=== PATIENT | female | born 1930 | race Caucasian/White ===

== ENCOUNTER → 2016-10-18 | Outpatient (CLI) | payer OTHER, BC ==
[~2016-10-18] MED LIST: ALEN70TA4 PO; ASPI81TA28 PO; HYG/25 PO; LEVO25TA5 PO; LISI-461 PO; MAGN400T24 PO; PANT40TA PO; POTA20TA13 PO; RANI150T3 PO; SIMV40TA2 PO
[2016-10-18 09:30] LABS: BASO % 0.9 %; BASO ABS # 0.07 K/uL (0-0.2); COMPLETE YES; EOS % 3.6 %; LYMPH % 10.7 %; LYMPH ABS # 0.87 K/uL (1.2-3.4); MEAN CELL VOLUME 87.6 fL (80-100); MEAN CORPUSCULAR HEMOGLOBIN 29.1 pg (25-34); MEAN CORPUSCULAR HGB CONC 33.2 g/dl (32-36); MEAN PLATELET VOLUME 9.4 fL (7.4-10.4); NEUT % 73.8 %; PLATELET COUNT 204 K/uL (130-400); RED BLOOD COUNT 4.68 M/uL (4.2-5.4); WHITE BLOOD COUNT 8.14 K/uL (4.8-10.8)
[2016-10-18 09:50] LABS: ESTIMATED AVERAGE GLUCOSE 108 mg/dl; HA1C FLAG Normal (Normal)
[2016-10-18 10:08] LABS: ALT/SGPT 28 U/L (12-78); AST/SGOT 18 U/L (15-37); BLOOD UREA NITROGEN 25 mg/dl (7-18); BUN/CREATININE RATIO 25.4 (10-20); CALCIUM 9.1 mg/dl (8.5-10.1); CARBON DIOXIDE 30 mmol/L (21-32); CHLORIDE 103 mmol/L (98-107); CHOLESTEROL 189 mg/dl (0-200); CREATININE 0.99 mg/dl (0.60-1.20); GLUCOSE 90 mg/dl (70-99); POTASSIUM 4.1 mmol/L (3.5-5.1); SODIUM 141 mmol/L (136-145)
[2016-10-18 10:18] LABS: CHOLESTEROL/HDL RATIO 4.1; HDL CHOLESTEROL 46 mg/dl; LDL CHOLESTEROL CALCULATED 109 mg/dl; TRIGLYCERIDES 168 mg/dl (0-150); VERY LOW DENSITY LIPOPROT CALC 34 mg/dl
== END | disposition home or self-care (01) ==
LOC: C.LAB1850 08:33
PROVIDERS: ATTEND Internal Medicine
DX: E78.00 Pure hypercholesterolemia, unspecified (principal); I10 Essential (primary) hypertension; R73.9 Hyperglycemia, unspecified

== ENCOUNTER → 2017-03-11 | Outpatient (CLI) | payer OTHER, BC ==
[2017-03-11 09:41] LABS: BASO % 0.8 %; BASO ABS # 0.06 K/uL (0-0.2); COMPLETE YES; EOS % 3.2 %; HEMATOCRIT 41.1 % (37-47); IG% 1.1 %; MEAN CELL VOLUME 86.2 fL (80-100); MEAN CORPUSCULAR HEMOGLOBIN 28.7 pg (25-34); MEAN CORPUSCULAR HGB CONC 33.3 g/dl (32-36); MONO % 9.2 %; NEUT % 71.7 %; PLATELET COUNT 216 K/uL (130-400); RED BLOOD COUNT 4.77 M/uL (4.2-5.4); WHITE BLOOD COUNT 7.84 K/uL (4.8-10.8)
[2017-03-11 09:44] LABS: URINE APPEARANCE CLEAR (CLEAR); URINE BILIRUBIN NEG (NEG); URINE COLOR YELLOW; URINE EPITHELIAL CELL AUTO >30 /lpf (0-5); URINE NITRITE NEG (NEG); URINE SPECIFIC GRAVITY 1.021 (1.000-1.030); UROBILINOGEN NEG (NEG)
[2017-03-11 09:46] LABS: MANUAL MICROSCOPIC REQUIRED? NO; REVIEW REQ? NO
[2017-03-11 09:54] LABS: ESTIMATED AVERAGE GLUCOSE 117 mg/dl; HA1C FLAG Normal (Normal)
[2017-03-11 10:04] LABS: ALT/SGPT 36 U/L (12-78); AST/SGOT 22 U/L (15-37); BLOOD UREA NITROGEN 29 mg/dl (7-18); BUN/CREATININE RATIO 22.6 (10-20); CARBON DIOXIDE 26 mmol/L (21-32); CHLORIDE 106 mmol/L (98-107); CHOLESTEROL 185 mg/dl (0-200); GLUCOSE 99 mg/dl (70-99); SODIUM 141 mmol/L (136-145); TRIGLYCERIDES 181 mg/dl (0-150); VERY LOW DENSITY LIPOPROT CALC 36 mg/dl
[2017-03-11 10:07] LABS: CALCIUM 8.9 mg/dl (8.5-10.1)
[2017-03-11 10:15] LABS: CHOLESTEROL/HDL RATIO 4.7; HDL CHOLESTEROL 39 mg/dl; LDL CHOLESTEROL CALCULATED 110 mg/dl
== END | disposition home or self-care (01) ==
LOC: C.LAB1850 07:51
PROVIDERS: ATTEND Internal Medicine
DX: Z00.00 Encounter for general adult medical examination without abnormal findings (principal); R53.83 Other fatigue; D50.9 Iron deficiency anemia, unspecified; R73.9 Hyperglycemia, unspecified; I10 Essential (primary) hypertension; E78.00 Pure hypercholesterolemia, unspecified; M79.1 Myalgia; M62.81 Muscle weakness (generalized); E03.9 Hypothyroidism, unspecified

== ENCOUNTER → 2017-08-15 | Outpatient (CLI) | payer OTHER, BC ==
--- NOTE | 2017-08-16 07:46 | MAMMOGRAPHY REPORT ---
BILATERAL DIGITAL SCREENING MAMMOGRAM WITH CAD: 08/15/2017 CLINICAL HISTORY: Routine screening. Patient has no complaints. TECHNIQUE: Bilateral CC, MLO and repeat right MLO views were obtained. Current study was also evalua juan f with a Computer Aided Detection (CAD) system. COMPARISON: Comparison is made to exams dated: 08/11/2016 mammogram, 07/28/2015 mammogram, 07/26/2014 mammogram, 07/25/2013 mammogram, 07/24/2012 mammogram, and 07/19/2011 mammogram - [facility]. BREAST COMPOSITION: There are scattered areas of fibroglandular density in both breasts. FINDINGS: There are a few scattered stable benign-appearing microcalcifications. A linear scar fred er overlies the inferior left breast. No suspicious mass, architectural distortion or cluster of david picious microcalcifications is seen. IMPRESSION: ACR BI-RADS CATEGORY 1: NEGATIVE There is no mammographic evidence of malignancy. A 1 year screening mammogram is recommended. The pa tient will receive written notification of the results. Approximately 10% of breast cancers are not detected with mammography. A negative mammographic report should not delay biopsy if a clinically suggestive mass is present. Lorenza Sahni M.D. ay/:08/15/2017 16:08:09 Enterprise Sales Executive: Chantal AMBRIZR, M, [facility] letter sent: Normal 1/2 BI-RADS Code: ACR BI-RADS Category 1: Negative
== END | disposition home or self-care (01) ==
LOC: C.MAMM 10:16
PROVIDERS: ATTEND Obstetrics & Gynecology
DX: Z12.31 Encounter for screening mammogram for malignant neoplasm of breast (principal)

== ENCOUNTER → 2017-11-18 | Outpatient (CLI) | payer OTHER, BC ==
[2017-11-18 09:36] LABS: BASO % 0.6 %; BASO ABS # 0.05 K/uL (0-0.2); EOS % 2.2 %; EOS ABS # 0.17 K/uL (0-0.5); HEMATOCRIT 39.7 % (37-47); HEMOGLOBIN 13.2 g/dL (12.0-16.0); IG# 0.03 K/uL (0.00-0.02); LYMPH % 10.3 %; LYMPH ABS # 0.81 K/uL (1.2-3.4); MEAN CELL VOLUME 86.1 fL (80-100); MEAN CORPUSCULAR HEMOGLOBIN 28.6 pg (25-34); MEAN CORPUSCULAR HGB CONC 33.2 g/dl (32-36); MONO % 10.9 %; MONO ABS # 0.85 K/uL (0.11-0.59); NEUT % 75.6 %; NEUT ABS # 5.92 K/uL (1.4-6.5); PLATELET COUNT 254 K/uL (130-400); RED CELL DISTRIBUTION WIDTH CV 14.6 % (11.5-14.5); RED CELL DISTRIBUTION WIDTH SD 45.8 fL (36.4-46.3); WHITE BLOOD COUNT 7.83 K/uL (4.8-10.8)
[2017-11-18 09:51] LABS: ALT/SGPT 39 U/L (12-78); AST/SGOT 32 U/L (15-37); BLOOD UREA NITROGEN 27 mg/dl (7-18); CARBON DIOXIDE 27 mmol/L (21-32); CREATININE 1.15 mg/dl (0.60-1.20); GLUCOSE 108 mg/dl (70-99); POTASSIUM 3.7 mmol/L (3.5-5.1); SODIUM 137 mmol/L (136-145)
[2017-11-18 09:55] LABS: HEMOGLOBIN A1C 5.6 % (4.5-5.6)
[2017-11-18 09:56] LABS: CHOLESTEROL 151 mg/dl (0-200); LDL CHOLESTEROL CALCULATED 82 mg/dl
== END | disposition home or self-care (01) ==
LOC: C.LAB1850 07:56
PROVIDERS: ATTEND Internal Medicine
DX: E78.00 Pure hypercholesterolemia, unspecified (principal)

== ENCOUNTER → 2018-05-03 | Outpatient (CLI) | payer OTHER, BC | END | disposition home or self-care (01) | LOC: C.LAB1850 09:47 | PROVIDERS: ATTEND Internal Medicine | DX: Z00.00 Encounter for general adult medical examination without abnormal findings (principal) ==

== ENCOUNTER → 2018-05-22 | Outpatient (CLI) | payer OTHER, BC ==
[2018-05-22 10:10] LABS: BASO % 0.9 %; BASO ABS # 0.07 K/uL (0-0.2); EOS % 3.8 %; HEMATOCRIT 38.7 % (37-47); HEMOGLOBIN 12.8 g/dL (12.0-16.0); IG# 0.09 K/uL (0.00-0.02); LYMPH % 11.3 %; LYMPH ABS # 0.88 K/uL (1.2-3.4); MEAN CORPUSCULAR HEMOGLOBIN 28.4 pg (25-34); MEAN CORPUSCULAR HGB CONC 33.1 g/dl (32-36); MEAN PLATELET VOLUME 9.5 fL (7.4-10.4); NEUT % 73.8 %; NEUT ABS # 5.76 K/uL (1.4-6.5); PLATELET COUNT 205 K/uL (130-400); RED CELL DISTRIBUTION WIDTH CV 15.2 % (11.5-14.5); RED CELL DISTRIBUTION WIDTH SD 48.5 fL (36.4-46.3)
[2018-05-22 10:33] LABS: HEMOGLOBIN A1C 5.6 % (4.5-5.6)
[2018-05-22 10:34] LABS: ALT/SGPT 28 U/L (12-78); AST/SGOT 21 U/L (15-37); BLOOD UREA NITROGEN 24 mg/dl (7-18); CALCIUM 8.6 mg/dl (8.5-10.1); CARBON DIOXIDE 26 mmol/L (21-32); CHOLESTEROL 157 mg/dl (0-200); CREATININE 1.09 mg/dl (0.60-1.20); GLUCOSE 96 mg/dl (70-99); LDL CHOLESTEROL CALCULATED 82 mg/dl; POTASSIUM 3.6 mmol/L (3.5-5.1); SODIUM 139 mmol/L (136-145)
== END | disposition home or self-care (01) ==
LOC: C.LAB1850 08:11
PROVIDERS: ATTEND Internal Medicine
DX: E78.00 Pure hypercholesterolemia, unspecified (principal)

== ENCOUNTER 2020-07-29 19:11 | Inpatient (IN) ==
[2020-07-29] MEDS ORDERED: dilTIAZem HCl 5 MG/ML 5 ML VIAL IV STA (19:22)
[2020-07-29] MEDS ORDERED: STAT IV Infusion **Titration per Protocol STA (19:22)
--- NOTE | 2020-07-29 19:34 | Emergency Department Note ---
History of Present Illness General Chief Complaint: Shortness of Breath/Dyspnea Source: patient Mode of arrival: ambulatory Limitations: no limitations History of Present Illness Provider Complaint: shortness of breath HPI Narrative: This is an 89-year-old female who presents to the ED with a chief complaint of exertional dyspnea for months. Today the patient went to a movie and she states that she had exertional dyspnea when she was walking home. She states that she took a nap and when she awoke she felt tightness in her chest, lightheaded and shaky. She decided to come to the hospital for evaluation. She denies any history of A. fib. EMS found the patient to have A. fib with RVR with heart rate of 140. She was transported here for further evaluation. She denies any nausea or vomiting. No fevers, respiratory complaints with regards to infection or other concerning symptoms. Related Data Home oxygen amount: 3 liters Home Medications Home Medications Medication Instructions Recorded Confirmed Type aspirin 81 mg tablet 81 mg PO DAILY tab 05/18/19 07/01/20 History ferrous gluconate 240 mg (27 mg 240 mg PO DAILY tab 05/18/19 07/01/20 History iron) tablet fluticasone propionate 50 2 sprays INTNAS BID #19.8 gm 10/29/19 07/01/20 Rx mcg/actuation nasal spray,suspension hydrochlorothiazide 12.5 mg capsule 12.5 mg PO DAILY #90 cap 05/06/20 07/01/20 Rx levothyroxine 25 mcg tablet 25 mcg PO DAILY #90 tab 05/06/20 07/01/20 Rx lisinopril 40 mg tablet 40 mg PO DAILY #90 tab 05/06/20 07/01/20 Rx mirabegron 25 mg tablet,extended 25 mg PO DAILY #90 tab 05/06/20 07/01/20 Rx release 24 hr pantoprazole 40 mg tablet,delayed 40 mg PO BID #180 tab 05/06/20 07/01/20 Rx release simvastatin 80 mg tablet 80 mg PO DAILY #90 tab 05/06/20 07/01/20 Rx cetirizine 10 mg tablet 5 mg PO DAILY tab 07/01/20 07/01/20 History fluticasone propionate 50 2 spray INTRANASAL DAILY #15.8 g 07/01/20 07/01/20 Rx mcg/actuation nasal spray,suspension mupirocin 2 % topical ointment 1 applic TOPICAL BID #15 g 07/01/20 07/01/20 Rx Allergies Allergy/AdvReac Type Severity Reaction Status Date / Time aspirin Allergy Unknown UNKNOWN Unverified 07/01/20 09:11 caffeine Allergy Unknown TACHYCARDIA Verified 07/01/20 09:11 - BODY FELT OUT OF "WHACK" epinephrine Allergy Unknown UNKNOWN Unverified 07/01/20 09:11 house dust Allergy Unknown Verified 07/01/20 09:11 Iodinated Contrast Media Allergy Unknown UNKNOWN Unverified 07/01/20 09:11 iodine Allergy Unknown TACHYCARDIA Verified 07/01/20 09:11 - BODY FELT OUT OF "WHACK" Penicillins Allergy Unknown UNKNOWN Verified 07/01/20 09:11 sulfamethoxazole Allergy Unknown Verified 07/01/20 09:11 [From Bactrim] trimethoprim [From Bactrim] Allergy Unknown Verified 07/01/20 09:11 mold Allergy Verified 07/01/20 09:11 nitrofurantoin Allergy Verified 07/01/20 09:11 [From Macrobid] Past Med/Surg History Medical History Allergic rhinitis Allergy to NSAIDs Breast mass Chronic sinusitis Dizziness Fatigue Frequent urinary incontinence Gastroesophageal reflux disease Hypercholesterolemia Hyperglycemia Hypothyroidism Iron deficiency anemia Iron deficiency anemia due to chronic blood loss Left bundle-branch block Malaise Myalgia Osteoarthritis Osteoporosis Palpitations Perforated nasal septum Peripheral neuropathy Premature ventricular contractions Urinary urgency Surgical History History of arthroscopic knee surgery History of oral surgery History of tonsillectomy and adenoidectomy History of total abdominal hysterectomy Family History Father Stroke syndrome Stroke Mother Heart disease Bleeding disorder Grandmother Heart disease Denies family history of Ovarian cancer Breast cancer Colorectal cancer Social History Smoking Status: Former smoker Tobacco Type: Cigarettes Hx Alcohol Use: No Hx Substance Use: No Preferred Language: Japanese marital status: / current occupational status: retired Feels Safe at Home: Yes Childhood Exposure to Second-Hand Smoke: No Review of Systems A total of 10 systems reviewed and were otherwise negative Physical Exam Vital Signs: Vital Signs - 24 hr 07/29/20 19:10 07/29/20 20:00 07/29/20 20:01 Temperature 36.9 C Temperature Source Oral Pulse Rate 155 H 112 H Pulse Rate [Right Finger] 110 H Respiratory Rate 18 16 Respiratory Effort / Characteristics Non-Labored Respiratory Depth Normal Normal Respiratory Patter n Regular Blood Pressure [Ri ght Arm] 185/84 H Blood Pressure Gela n [Right Arm] 117 Blood Pressure Pos ition Lying Blood Pressure Pos ition [Right Arm] Lying Pulse Oximetry 95 97 97 Oxygen Delivery Me thod Room Air Room Air Room Air Sepsis Recent Feve r Within 48 Hours No Sepsis New/Unexpla ined Change in Men roderick Status No Sepsis Action Take n by Nursing No Action Required Physical Exam: CONSTITUTIONAL/VITAL SIGNS: Reviewed / noted above. GENERAL: Non-toxic in appearance. INTEGUMENTARY: Warm, dry, and [place]. HEAD: Normocephalic. EYES: without scleral icterus or trauma. ENT/OROPHARYNX: clear and moist. LYMPHADENOPATHY/NECK: Is supple without lymphadenopathy or meningismus. RESPIRATORY: Lungs clear and equal. CARDIOVASCULAR: Tachycardic rate and irregular rhythm. GI/ABDOMEN: Soft and nontender. No organomegaly or pulsatile mass. No rebound or guarding. Normal bowel sounds. EXTREMITIES: Warm and well perfused. BACK: No CVA tenderness. NEUROLOGICAL: Intact without focal deficits. PSYCHIATRIC: normal affect. MUSCULOSKELETAL: Normally developed with good muscle tone. TRIAGE NURSING DOCUMENTATION REVIEWED. Course Administered Medications Diltiazem HCl 125 mg/ Dextrose 125 mls @ 5 mls/hr IV .Q24H [facility]; Protocol Stop: 08/28/20 19:29 Last Admin: 07/29/20 19:54 Dose: 5 mg/hr, 5 mls/hr Documented by: [id number] Cosigned by: [id number] Discontinued Medications Diltiazem HCl (Diltiazem Hcl 5 Mg/Ml 5 Ml Vial) 20 mg IV NOW STA Stop: 07/29/20 19:23 Last Admin: 07/29/20 19:54 Dose: 20 mg Documented by: [id number] Cosigned by: [id number] Miscellaneous (Stat Iv Infusion Titration Per Protocol) 1 ea N/A NOW STA Stop: 07/29/20 19:23 Last Admin: 07/29/20 19:59 Dose: 1 ea Documented by: [id number] Medical Decision Making Differential Diagnosis The differential that was considered includes acute myocardial infarction, acute coronary syndrome, myocarditis, pericarditis, pericardial effusions /tamponade, esophageal perforation, thoracic aortic dissection, pulmonary embolism, pneumonia, pneumothorax, pancreatitis, shingles, acute cholecystitis, perforated abdominal viscus. Medical Records Attestation: I reviewed the patient's medical records. Home Medications Current Medication List: was personally reviewed by me Laboratory Data Attestation: I reviewed the patient's lab results. Result diagrams: 07/29/20 19:00 07/29/20 19:00 Lab Results 07/29/20 07/29/20 07/29/20 Range/Units 19:00 19:00 19:00 WBC 14.87 H (4.8-10.8) K/uL RBC 4.60 (4.2-5.4) M/uL Hgb 13.0 (12.0-16.0) g/dL Hct 39.1 (37-47) % MCV 85.0 (80-100) fL MCH 28.3 (25-34) pg MCHC 33.2 (32-36) g/dL RDW Std Deviation 47.4 H (36.4-46.3) fL RDW Coeff of Ginny 15.2 H (11.5-14.5) % Plt Count 259 (130-400) K/uL MPV 9.5 (7.4-10.4) fL Immature Gran % (Auto) 0.7 % Neut % (Auto) 80.6 % Lymph % (Auto) 8.7 % Knox % (Auto) 8.9 % Eos % (Auto) 0.9 % Baso % (Auto) 0.2 % Neut # (Auto) 11.98 H (1.4-6.5) K/uL Lymph # (Auto) 1.30 (1.2-3.4) K/uL Knox # (Auto) 1.32 H (0.11-0.59) K/uL Eos # (Auto) 0.14 (0-0.5) K/uL Baso # (Auto) 0.03 (0-0.2) K/uL Immature Gran # (Auto) 0.10 H (0.00-0.02) K/uL PT 10.7 (9.0-12.0) Seconds INR 1.0 (0.9-1.1) APTT 31.1 H (21.0-31.0) Seconds PTT Ratio 1.1 Sodium 137 (136-145) mmol/L Potassium 3.7 (3.5-5.1) mmol/L Chloride 104 (98-107) mmol/L Carbon Dioxide 26 (21-32) mmol/L Anion Gap 7.0 (3-11) BUN 28 H (7-18) mg/dl Creatinine 1.18 (0.6-1.2) mg/dl Est Cr Clr Drug Dosing 32.5 ml/min Est GFR ( Amer) 47.7 Est GFR (Non-Af Amer) 41.1 BUN/Creatinine Ratio 23.6 H (10-20) Glucose 121 H (70-99) mg/dl Calcium 9.5 (8.5-10.1) mg/dl Total Bilirubin 0.5 (0.2-1) mg/dl AST 15 (15-37) U/L ALT 22 (12-78) U/L Alkaline Phosphatase 116 (45-117) U/L Troponin I 0.017 (0-0.045) ng/ml Total Protein 7.5 (6.4-8.2) gm/dl Albumin 3.2 L (3.4-5.0) gm/dl Globulin 4.3 H (2.5-4.0) gm/dl Albumin/Globulin Ratio 0.7 L (0.9-2) Lipase 219 (73-393) U/L TSH 2.080 (0.300-4.500) uIu/ml Imaging Data Radiologist's Impression: XR chest 1V portable HISTORY: 89 years-old Female Chest Pain acute atypical chest pain COMPARISON: Chest radiograph 08/30/2019 TECHNIQUE: Portable AP view of the chest FINDINGS: Cardiomediastinal and hilar silhouettes are within normal limits. Ill-defined left midlung opacity. No pneumothorax, pleural effusion, overt pulmonary edema or lobar airspace consolidation. Moderate to severe osteoarthritis of the left glenohumeral joint. IMPRESSION: Ill-defined left midlung opacity is likely secondary to summation density. Developing airspace disease considered less likely. ECG Data Attestation: I personally reviewed and interpreted this ECG as follows: (Twelve- lead EKG: Per my interpretation reveals A. fib with RVR at a rate of 130 with a chronic left bundle branch block.) MDM Narrative The patient presents with exertional dyspnea for months as well as tightness in her chest, lightheadedness and shakiness tonight. The patient was found to be in A. fib with RVR by EMS. She was transported here. The patient has no history of A. fib in the past. Her initial twelve-lead EKG here shows A. fib at a rate of 130 with a left bundle branch block. The left bundle branch block is old comparing it to a twelve-lead EKG dated August 302018. Chest x-ray was negative for acute disease. White blood cell count is 14.8. BUN is 28. TSH is normal. Troponin is negative. The patient was given IV Cardizem bolus as well as IV Cardizem drip. The heart rate did improve some. She will be seen by the hospitalist for further evaluation and care. She was also started on IV heparin. Impression & Plan Atrial fibrillation, new onset, Atrial fibrillation with RVR Critical Care Time Critical Care Time: Yes Total Critical Care Time: 30 I have personally spent 30 minutes of critical care time in the direct management of this patient. This includes bedside care, interpretation of diagnostic studies, and testing, discussion with consultants, patient, and family members, and other required patient management activities. This 30 minutes is in excess of all separately billable procedures. Discharge Plan Visit Data Chief Complaint: Shortness of Breath/Dyspnea ED Provider: Jori Zavala Discharge Problem: Atrial fibrillation, new onset, Atrial fibrillation with RVR Patient Disposition: Being Evaluated by Hospitalist Forms Stand Alone Forms: My [facility] Prescriptions Prescriptions: No Action fluticasone propionate 50 mcg/actuation spray,suspension 2 sprays INTNAS BID Qty: 19.8 RF: 11 hydrochlorothiazide 12.5 mg capsule 12.5 mg PO DAILY Qty: 90 RF: 3 levothyroxine 25 mcg tablet 25 mcg PO DAILY Qty: 90 RF: 3 lisinopril 40 mg tablet 40 mg PO DAILY Qty: 90 RF: 3 mirabegron 25 mg tablet extended release 24 hr 25 mg PO DAILY Qty: 90 RF: 3 pantoprazole 40 mg tablet,delayed release (DR/EC) 40 mg PO BID Qty: 180 RF: 3 simvastatin 80 mg tablet 80 mg PO DAILY Qty: 90 RF: 3 mupirocin 2 % ointment 1 applic topical BID Qty: 15 RF: 2 fluticasone propionate 50 mcg/actuation spray,suspension 2 spray intranasal DAILY Qty: 15.8 RF: 11 aspirin 81 mg tablet 81 mg PO DAILY RF: 0 ferrous gluconate 240 mg (27 mg iron) tablet 240 mg PO DAILY RF: 0 cetirizine 10 mg tablet 5 mg PO DAILY RF: 0 Referrals Referrals: Pedro Luis Conner MD [Primary Care Provider] -
[2020-07-29 19:39] LABS: Basophils # (auto) 0.03 K/uL (0-0.2); Basophils % (auto) 0.2 %; Eosinophils # (auto) 0.14 K/uL (0-0.5); Eosinophils % (auto) 0.9 %; Hematocrit (blood only) 39.1 % (37-47); Immature Granulocytes % (auto) 0.7 %; Lymphocytes % (auto) 8.7 %; Mean Corpuscular Hemoglobin 28.3 pg (25-34); Mean Corpuscular Hgb Conc 33.2 g/dL (32-36); Mean Platelet Volume 9.5 fL (7.4-10.4); Monocytes # (auto) 1.32 K/uL (0.11-0.59); Monocytes % (auto) 8.9 %; Neutrophils # (auto) 11.98 K/uL (1.4-6.5); Neutrophils % (auto) 80.6 %; Platelet Count 259 K/uL (130-400); RDW Coefficient of Variation 15.2 % (11.5-14.5); RDW Standard Deviation 47.4 fL (36.4-46.3); White Blood Count 14.87 K/uL (4.8-10.8)
[2020-07-29 19:49] LABS: Partial Thromboplastin Ratio 1.1; Partial Thromboplastin Time 31.1 Seconds (21.0-31.0); Prothrombin Time 10.7 Seconds (9.0-12.0)
[2020-07-29] MEDS: dilTIAZem HCL 125 MG in DEXTROSE 5% 100 ML IV SCH (19:54)
[2020-07-29 20:02] LABS: Albumin Level 3.2 gm/dl (3.4-5.0); BUN Creatinine Ratio 23.6 (10-20); Calcium 9.5 mg/dl (8.5-10.1); Creatinine Clr Calc Pharmacy 32.5 ml/min; Est GFR (African American) 47.7; Est GFR (Non-African American) 41.1; Potassium 3.7 mmol/L (3.5-5.1)
--- NOTE | 2020-07-29 20:10 | XRay Report ---
XR chest 1V portable HISTORY: 89 years-old Female Chest Pain acute atypical chest pain COMPARISON: Chest radiograph 08/30/2019 TECHNIQUE: Portable AP view of the chest FINDINGS: Cardiomediastinal and hilar silhouettes are within normal limits. Ill-defined left midlung opacity. N o pneumothorax, pleural effusion, overt pulmonary edema or lobar airspace consolidation. Moderate to severe osteoarthritis of the left glenohumeral joint. IMPRESSION: Ill-defined left midlung opacity is likely secondary to summation density. Developing air space disease considered less likely. ACT 112: Negative or not required by law. The above report was generated using voice recognition software. It may contain grammatical, syntax o r spelling errors. Electronically signed by: Frantz Pereyra M.D. 07/29/2020 8:09 PM
[2020-07-29 20:13] LABS: Albumin Globulin Ratio 0.7 (0.9-2); Bilirubin,Total 0.5 mg/dl (0.2-1); Globulin 4.3 gm/dl (2.5-4.0); Thyroid Stimulating Hormone 2.08 uIu/ml (0.300-4.500); Total Protein 7.5 gm/dl (6.4-8.2); Troponin I 0.017 ng/ml (0-0.045)
[2020-07-29] MEDS ORDERED: HEPARIN SODIUM/DEXTROSE 25,000 UNITS/500 ML BAG IV SCH (20:15)
[2020-07-29] MEDS ORDERED: HEPARIN SOD (PORCINE) 1000 UNIT/ML 10 ML VIAL ONE (21:10)
--- NOTE | 2020-07-29 22:12 | History & Physical Report ---
Date of Service July 29, 2020 Assessment & Plan (1) Atrial fibrillation with RVR: Ms. Odell is a pleasant 89yofemale with a PMHx significant for HTN, HLD, Hypothryoidism, GERD, chronic sinusitis, iron deficiency anemia, osteoarthritis, osteoporosis, allergic rhinitis and overactive bladder who presents with atrial fibrillation with rvr, possibly new onset. Atrial Fibrillation with RVR -Pt states she has been having dyspnea with exertion for the last 4 days -EKG on admission showed atrial fibrillation with RVR, HR 130, qtc 509. Known LBBB. -Trops Negative at 0.017, will get an AM value since not <0.015 -Echo ordered and pending -K+ 3.7 and magnesium pending with AM labs, will optimize -TSH within normal limits at 2.080 -continue cardizem drip started in the ED -continue heparin drip for anticoagulation -cardiology consult, appreciate recs HTN -currently hypotensive on cardizem drip -hold home HCTZ 12.5mg and lisinopril 40mg daily Hypothyroidism -TSH 2.080 as above -continue home levothyroxine 25mcg daily GERD -continue home pantoprazole 40mg BID HLD -continue home simvastatin 80mg Iron Def anemia -continue home ferrous sulfate 325mg po Osteoarthritis -hold home ibuprofen Hx of NSAID Allergy -per pt she underwent a desensitization process and was prescribed ibuprofen above -no longer allergic Overactive bladder -continue home mirabegron 25mg Allergic rhinitis -continue home citirizine 10mg daily FEN/GI: Heart healthy diet CODE STATUS: Full code DVT prophylaxis: On a heparin drip Dispo: PCU/tele (2) SOB (shortness of breath) on exertion: (3) Allergic rhinitis: (4) Allergy to NSAIDs: (5) Chronic sinusitis: (6) Frequent urinary incontinence: (7) Gastroesophageal reflux disease: (8) Hypercholesterolemia: (9) Hypothyroidism: (10) Iron deficiency anemia: (11) Left bundle-branch block: (12) Osteoarthritis: (13) Osteoporosis: (14) Hypertension: History of Present Illness Primary Care Provider: Pedro Luis Conner MD Ms. Odell is a pleasant 89yo female with a PMHx significant for HTN, HLD, Hypothyroidism, GERD, chronic sinusitis, iron deficiency anemia, osteoarthritis, osteoporosis, allergic rhinitis and overactive bladder who presents with atrial fibrillation with rvr, possibly new onset. She presents today from the [facility] and states that she started noticing some exertional dyspnea during her daily walks on Tuesday (4 days ago) and it was particularly worse the next day because she had to stop multiple times. She was also very tired, with anorexia and nausea. Today she says she was going to watch a movie at the [facility] and was walking down the lu and climbing steps when she noticed some chest tightness with weakness and dizziness, also some chills. She states she took off her bra which helped relive some of the chest tightness but after trying to lay down with persistent dizziness, she called the nurse at the [facility] who recommended she come to the ED where she was found to be in a fib with rvr. She states she thinks she might have had this before but each time she came to the ED, she "got fixed" and was discharged back home. PMHx: As above PSH: Hysterectomy, tonsillectomy, sinus surgeries NOT rhinoplasty (would like people to know she did NOT have a "nose job") Fam Hx: Mom had a Hx of rheumatic fever as a child with "valve problem". Dad from a cerebral hemorrhage SH: Used to smoke 2ppd from [id number]. She quit "cold turkey" and is a huge advocate that it can be done. She drinks "very little" alcohol and has had none recently. No recreational drug use. Lives at the [facility]. Allergies Allergy/AdvReac Type Severity Reaction Status Date / Time epinephrine Allergy Severe ARRHYTHMIA, Verified 07/29/20 20:36 IRRITABILITY, TACHYCARDIA Iodinated Contrast Media Allergy Severe Anaphylaxis Verified 07/29/20 20:36 iodine Allergy Severe TACHYCARDIA, Verified 07/29/20 20:36 ARRHYTHMIA caffeine Allergy Unknown TACHYCARDIA Verified 07/29/20 20:36 - BODY FELT OUT OF "WHACK" house dust Allergy Unknown Unknown Verified 07/29/20 20:36 mold Allergy Unknown Unknown Verified 07/29/20 20:36 nitrofurantoin Allergy Unknown Unknown Verified 07/29/20 20:36 [From Macrobid] Penicillins Allergy Unknown UNKNOWN Verified 07/29/20 20:36 sulfamethoxazole Allergy Unknown Unknown Verified 07/29/20 20:36 [From Bactrim] trimethoprim [From Bactrim] Allergy Unknown Unknown Verified 07/29/20 20:36 Home Medications Home Medications Medication Instructions Recorded Confirmed Type hydrochlorothiazide 12.5 mg capsule 12.5 mg PO DAILY #90 cap 05/06/20 07/29/20 Rx levothyroxine 25 mcg tablet 25 mcg PO DAILY #90 tab 05/06/20 07/29/20 Rx lisinopril 40 mg tablet 40 mg PO DAILY #90 tab 05/06/20 07/29/20 Rx mirabegron 25 mg tablet,extended 25 mg PO DAILY #90 tab 05/06/20 07/29/20 Rx release 24 hr pantoprazole 40 mg tablet,delayed 40 mg PO BID #180 tab 05/06/20 07/29/20 Rx release simvastatin 80 mg tablet 80 mg PO DAILY #90 tab 05/06/20 07/29/20 Rx cetirizine 10 mg tablet 10 mg PO DAILY tab 07/01/20 07/29/20 History aspirin 81 mg PO DAILY 07/29/20 07/29/20 History ferrous sulfate 325 mg PO DAILY 07/29/20 07/29/20 History ibuprofen 200 mg PO BID 07/29/20 07/29/20 History Past Med/Surg History Medical History Allergic rhinitis Allergy to NSAIDs Breast mass Chronic sinusitis Dizziness Fatigue Frequent urinary incontinence Gastroesophageal reflux disease Hypercholesterolemia Hyperglycemia Hypothyroidism Iron deficiency anemia Iron deficiency anemia due to chronic blood loss Left bundle-branch block Malaise Myalgia Osteoarthritis Osteoporosis Palpitations Perforated nasal septum Peripheral neuropathy Premature ventricular contractions Urinary urgency Surgical History History of arthroscopic knee surgery History of oral surgery History of tonsillectomy and adenoidectomy History of total abdominal hysterectomy Family History Father Stroke syndrome Stroke Mother Heart disease Bleeding disorder Grandmother Heart disease Denies family history of Ovarian cancer Breast cancer Colorectal cancer Social History Smoking Status: Former smoker Tobacco Type: Cigarettes Second Hand Exposure: No; Do You Dip or Chew Tobacco: No; Tobacco Cessation Education Requested by Patient: No Hx Alcohol Use: No Hx Substance Use: No Preferred Language: Faroese Communication Ability: Effective [employer] Required: No Beliefs That Will Affect Care: None marital status: / Current Living Situation: Alone current occupational status: retired Other Information That Helps Us Care for You: No Feels Safe at Home: Yes Safety Concerns: Feels Safe At This Time Childhood Exposure to Second-Hand Smoke: No Assistive Devices: None Review of Systems Constitutional: + fatigue, + weakness and + anorexia; no fever, no chills and no sweats Eyes: no worsening vision Ear, Nose, Mouth, Throat: + dizziness; no nasal congestion and no sore throat Respiratory: + dyspnea and + dyspnea on exertion; no cough Cardiovascular: + dyspnea on exertion; no chest pain, no palpitations and no edema Gastrointestinal: + nausea; no abdominal pain, no vomiting, no constipation, no diarrhea/loose stools and no blood in stools Genitourinary: no dysuria and no hematuria Musculoskeletal: + muscle weakness; no back pain Integumentary: no rash Neurologic: + dizziness; no tingling, no numbness, no headache(s) and no confusion Psychiatric: no confusion Physical Exam Physical Exam: General: Alert, oriented. No acute distress, sitting in bed watching TV Skin: No noted rashes or bruises Psych: Appropriate mood and affect Neuro: No gross deficits HEENT: NC/AT Chest: Nontender to palpation. CV: Irregular rate and rhythm. No murmurs appreciated Resp: Breath sounds clear bilaterally, no increased effort of breathing. No crackles/rhonchi/rales. Abdomen: BS+. Soft, nontender, nondistended. No guarding. Extremities: No edema in lower extremities bilaterally. Results & Data Results & Data ([facility]) Vital Signs (Past 12 Hours) Vital Signs Temp Pulse Pulse Resp BP Pulse Ox 07/29/20 21:28 122 H 16 125/90 96 07/29/20 20:01 112 H 97 07/29/20 20:00 110 H 16 185/84 H 97 07/29/20 19:10 36.9 C 155 H 18 95 Supervising Physician Co-Signing Physician Notes Patient seen and examined, chart reviewed, case discussed with Dr. Lan and I agree with her assessment and plan as documented above. Briefly, patient is an 89yo C female with history of GERD, HLP, HTN and preexisting LBBB presenting with ongoing LOWERY, decreased exercise tolerance. Patient found to be in new- onset atrial fibrillation On exam she is resting comfortably, NAD Skin - no rash HEENT - NC/AT, PERRL, EOMI, Neck supple Heart - +S1/S2, irregularly irregular, tachycardia, no m/r/g Lungs - CTA Abd - +BS, soft, NT/ND Ext - No edema Labs and images reviewed. WBC elevated at 14.87, electrolytes WNL, troponin neg ative Assessment/Plan: 89yo female with history of HTN presenting in new-onset atrial fibrillation with RVR. Rate improving with Cardizem bolus and drip -Continue cardizem drip -PO in AM -Heparin gtt for anticoagulation. -Remainder of plan as above Resident Activity Tracking Resident Involvement: Resident Care Provided Care Provided: Adult Hospital Medicine (1) Allergic rhinitis Allergic rhinitis seasonality: unspecified Allergic rhinitis trigger: unspecified Qualified Code(s): J30.9 - Allergic rhinitis, unspecified
--- NOTE | 2020-07-30 03:07 | Billing Data ---
Date of Service July 29, 2020 Coding Level of Care Code 68831 Initial Inpt Care Lvl 3
[2020-07-30] MEDS ORDERED: Heparin IV Standard *NO* Bolus IV ONE (03:10)
[2020-07-30] MEDS ORDERED: HEPARIN SODIUM/DEXTROSE 25,000 UNITS/500 ML BAG IV SCH (03:10)
[2020-07-30] MEDS ORDERED: ONDANSETRON INJ 2 MG/ML 2 ML VIAL IV PRN (03:10)
[2020-07-30] MEDS ORDERED: STAT IV Infusion **Titration per Protocol STA (03:10)
[2020-07-30] MEDS ORDERED: ALUMINUM/MAGNESIUM/SIMETH (MAALOX MAX) 30 ML UDC PO PRN (03:10)
[2020-07-30] MEDS ORDERED: dilTIAZem HCL 125 MG in DEXTROSE 5% 100 ML IV SCH (03:10)
[2020-07-30] MEDS ORDERED: POTASSIUM CHLORIDE 20 MEQ TABCR PO STA (03:10)
[2020-07-30] MEDS ORDERED: ACETAMINOPHEN 500 MG TAB PO PRN (03:10)
[2020-07-30] MEDS ORDERED: POLYETHYLENE (MIRALAX) 17 GM PACK PO PRN (03:10)
[2020-07-30 03:36] LABS: Basophils # (auto) 0.02 K/uL (0-0.2); Basophils % (auto) 0.1 %; Eosinophils # (auto) 0.07 K/uL (0-0.5); Eosinophils % (auto) 0.5 %; Hematocrit (blood only) 36.8 % (37-47); Hemoglobin 12.4 g/dL (12.0-16.0); Immature Granulocytes # (auto) 0.07 K/uL (0.00-0.02); Immature Granulocytes % (auto) 0.5 %; Lymphocytes # (auto) 1.53 K/uL (1.2-3.4); Lymphocytes % (auto) 10.8 %; Mean Corpuscular Hemoglobin 28.5 pg (25-34); Mean Corpuscular Hgb Conc 33.7 g/dL (32-36); Mean Corpuscular Volume 84.6 fL (80-100); Mean Platelet Volume 9.1 fL (7.4-10.4); Monocytes # (auto) 1.02 K/uL (0.11-0.59); Monocytes % (auto) 7.2 %; Neutrophils % (auto) 80.9 %; Platelet Count 246 K/uL (130-400); RDW Coefficient of Variation 15.3 % (11.5-14.5); RDW Standard Deviation 47.3 fL (36.4-46.3); Red Blood Count 4.35 M/uL (4.2-5.4); White Blood Count 14.11 K/uL (4.8-10.8)
[2020-07-30 03:55] LABS: Albumin Level 2.9 gm/dl (3.4-5.0); BUN Creatinine Ratio 21.2 (10-20); Calcium 8.9 mg/dl (8.5-10.1); Est GFR (African American) 50.3; Est GFR (Non-African American) 43.4; Magnesium 1.9 mg/dl (1.8-2.4); Potassium 3.7 mmol/L (3.5-5.1)
[2020-07-30 03:57] LABS: Partial Thromboplastin Ratio 3.1
[2020-07-30 04:04] LABS: Albumin Globulin Ratio 0.8 (0.9-2); Bilirubin,Total 0.5 mg/dl (0.2-1); Globulin 3.8 gm/dl (2.5-4.0); Phosphorus 2.7 mg/dl (2.5-4.9); Total Protein 6.7 gm/dl (6.4-8.2); Troponin I 0.088 ng/ml (0-0.045)
[2020-07-30 04:11] LABS: Partial Thromboplastin Time 87.1 Seconds (21.0-31.0)
[2020-07-30] MEDS: LEVOTHYROXINE SODIUM 25 MCG TABLET PO SCH (06:09)
[2020-07-30] MEDS: dilTIAZem HCL 125 MG in DEXTROSE 5% 100 ML IV SCH (07:37)
[2020-07-30] MEDS: MIRABEGRON ER 25 MG TAB PO SCH (08:46)
[2020-07-30] MEDS: PANTOprazole 40 MG TAB PO SCH ×2 (08:46→21:15)
[2020-07-30] MEDS: FERROUS SULFATE 325 MG TAB PO SCH (08:46)
[2020-07-30] MEDS ORDERED: SIMVASTATIN 80 MG TAB PO SCH ×2 (09:00→21:00)
[2020-07-30] MEDS ORDERED: CETIRIZINE HCL 10 MG TABLET PO SCH ×2 (09:00→21:00)
[2020-07-30] MEDS ORDERED: Nursing to Pharmacy Communication SCH (09:00)
--- NOTE | 2020-07-30 09:32 | Cardiology Consultation ---
Date of Consultation July 30, 2020 Assessment & Plan (1) Atrial fibrillation with RVR: Mrs. Odell is an 89-year-old female with a history of Hypertension, Hypercholesterolemia, GERD, DJD, Hypothyroidism, Iron Deficiency Anemia, Chronic LBBB, PVCs, Osteoporosis, Peripheral Neuropathy, and Moderate Concentric LVH who presented to [facility] ER yesterday with Newly Diagnosed A-Fib with RVR which manifested with progressive exertional dyspnea, fatigue, and decreased exertional tolerance x 3 to 4 days before presentation. Patient has not had any palpitations or sensation of tachy-palpitations with this episode of A-Fib. Last evening she had a brief but very vague sense of a heaviness in her chest but denies any radiation of this heaviness and she did not have any associated nausea, vomiting, or diaphoresis. I suspect that this is not her first episode of A-Fib -- because she has experienced periods of increased LOWERY and fatigue in the past but they did not last this long. Patient was placed on IV Diltiazem and IV Heparin. Her ventricular rate improved overnight and she spontaneously converted back to a normal sinus rhythm earlier this morning and remains completely asymptomatic. Troponin I elevated at 0.088 ng/ml and this likely represents demand ischemia secondary to rapid A- Fib and LVH. Echocardiogram 07/30/2020 shows hyperdynamic LV systolic function, LVEF > 60%, no wall motion abnormalities. We had a long discussion regarding what Paroxysmal Atrial Fibrillation is, the natural history of A-Fib, and we discussed various management strategies -- including the importance of rate control and anticoagulation. Patient's [id number] is 4 so anticoagulation is indicated. Patient verbalized understanding of these discussions. Patient is stable for discharge to home from a cardiac standpoint. Recommend the followin. Discharge to home on Eliquis 5 mg b.i.d.. 2. Discharge to home on Diltiazem CD 180 mg daily. 3. Recommend stopping Ibuprofen. 4. Continue Lisinopril 40 mg daily. 5. Continue Hydrochlorothiazide 12.5 mg daily. 6. Continue Simvastatin 80 mg daily. Follow-up with [facility] 1 to 2 weeks following discharge. (2) Elevated troponin I level: -- Troponin I elevated at 0.088 ng/ml. -- This likely represents demand ischemia secondary to rapid A-Fib and LVH. -- Echocardiogram 07/30/2020 shows hyperdynamic LV systolic function, LVEF > 60%, no wall motion abnormalities. -- No further ischemic work-up is recommended at this time. -- Continue Aspirin 81 ng daily. -- Continue Simvastatin 80 mg daily. -- Begin Diltiazem CD 180 mg daily to lessen V-rate when in atrial fibrillation. (3) SOB (shortness of breath) on exertion: -- Secondary to Rapid Atrial Fibrillation, now resolved. -- Recommend management as outlined above. (4) Left bundle-branch block: -- Chronic LBBB. -- Normal LV systolic function. (5) Hypertension: -- Continue antihypertensive regimen as outlined above. -- Low sodium diet. Supervising Physician Co-Signing Physician Notes ADDENDUM (Dr. Schwab): Patient seen, interviewed, and examined. Agree with plan as outlined above by Mr. Todd LAMA. 89-year-old woman with new onset atrial fibrillation which reverted to sinus rhythm on diltiazem drip. She is transitioning to oral diltiazem and just initiated apixaban for anticoagulation ([id number] score 4). Given potential interaction of simvastatin with diltiazem, would change to atorvastatin 40 mg or reduce simvastatin dosing. Mild troponin elevation likely demand ischemia, no symptoms to indicate acute coronary syndrome. Her left bundle branch block is chronic and has not impaired her systolic f unction. Monitor hemodynamics and rhythm overnight, likely she will be appropriate for discharge in the morning. Case discussed with Dr. Maria. History of Present Illness Reason for Consultation: -- Atrial Fibrillation, new onset. -- Atrial Fibrillation with RVR. Requesting Physician: Lyssa Maria MD Attending Physician: Enmanuel Schwab MD History of Present Illness Mrs. Odell is an 89-year-old female with a history of Hypertension, Hypercholesterolemia, GERD, DJD, Hypothyroidism, Iron Deficiency Anemia, Chronic LBBB, PVCs, Osteoporosis, Peripheral Neuropathy, and Moderate Concentric LVH who presented to [facility] ER yesterday with Newly Diagnosed A-Fib with RVR. Patient developed progressive exertional dyspnea and fatigue over the preceding 3 to 4 days. She typically walks around the perimeter of [place] 2 or 3 times per week. There is an uphill segment in this route which historically the patient stops once to catch her breath. However, beginning on 07/27/2020 -- she noticed increased LOWERY and she had to stop multiple times to catch her breath. She has also experienced dyspnea while walking on a level surface, especially if she walks and tries to talk. Patient denies any palpitations or sensation of tachy-palpitations with this episode of A-Fib, but last evening she had a brief but very vague sense of a heaviness in her chest but denies any radiation of this heaviness and she denies any associated nausea, vomiting, or diaphoresis. This is probably not her first episode of A-Fib -- because she has experienced periods of increased LOWERY and fatigue in the past but they did not last this long. Patient was started on IV Diltiazem drip and a Heparin drip. Patient spontaneously converted back to a junctional rhythm then to a NSR at 05:04:46 this morning. She feels this morning and her dyspnea and fatigue have resolved. She has not had any symptoms suggestive of stroke or mini-stroke. Her initial Troponin I was 0.017 and increased to 0.088 ng/ml. Echocardiogram Allergies Allergy/AdvReac Type Severity Reaction Status Date / Time epinephrine Allergy Severe ARRHYTHMIA, Verified 07/29/20 20:36 IRRITABILITY, TACHYCARDIA Iodinated Contrast Media Allergy Severe Anaphylaxis Verified 07/29/20 20:36 iodine Allergy Severe TACHYCARDIA, Verified 07/29/20 20:36 ARRHYTHMIA caffeine Allergy Unknown TACHYCARDIA Verified 07/29/20 20:36 - BODY FELT OUT OF "WHACK" house dust Allergy Unknown Unknown Verified 07/29/20 20:36 mold Allergy Unknown Unknown Verified 07/29/20 20:36 nitrofurantoin Allergy Unknown Unknown Verified 07/29/20 20:36 [From Macrobid] Penicillins Allergy Unknown UNKNOWN Verified 07/29/20 20:36 sulfamethoxazole Allergy Unknown Unknown Verified 07/29/20 20:36 [From Bactrim] trimethoprim [From Bactrim] Allergy Unknown Unknown Verified 07/29/20 20:36 Home Medications Home Medications Medication Instructions Recorded Confirmed Type hydrochlorothiazide 12.5 mg capsule 12.5 mg PO DAILY #90 cap 05/06/20 07/29/20 Rx levothyroxine 25 mcg tablet 25 mcg PO DAILY #90 tab 05/06/20 07/29/20 Rx lisinopril 40 mg tablet 40 mg PO DAILY #90 tab 07/28/20 10/20/20 Rx mirabegron 25 mg tablet,extended 25 mg PO DAILY #90 tab 05/06/20 07/29/20 Rx release 24 hr pantoprazole 40 mg tablet,delayed 40 mg PO BID #180 tab 05/06/20 07/29/20 Rx release simvastatin 80 mg tablet 80 mg PO DAILY #90 tab 05/06/20 07/29/20 Rx cetirizine 10 mg tablet 10 mg PO DAILY tab 07/01/20 07/29/20 History aspirin 81 mg PO DAILY 07/29/20 07/29/20 History ferrous sulfate 325 mg PO DAILY 07/29/20 07/29/20 History ibuprofen 200 mg PO BID 07/29/20 07/29/20 History Patient History Medical History Allergic rhinitis Allergy to NSAIDs Breast mass Chronic sinusitis Dizziness Fatigue Frequent urinary incontinence Gastroesophageal reflux disease Hypercholesterolemia Hyperglycemia Hypothyroidism Iron deficiency anemia Iron deficiency anemia due to chronic blood loss Left bundle-branch block Malaise Myalgia Osteoarthritis Osteoporosis Palpitations Perforated nasal septum Peripheral neuropathy Premature ventricular contractions Urinary urgency Surgical History History of arthroscopic knee surgery History of oral surgery History of tonsillectomy and adenoidectomy History of total abdominal hysterectomy Family History Father Stroke syndrome Stroke Mother Heart disease Bleeding disorder Grandmother Heart disease Denies family history of Ovarian cancer Breast cancer Colorectal cancer Social History Smoking Status: Former smoker Tobacco Type: Cigarettes Second Hand Exposure: No; Hx Alcohol Use: No Hx Substance Use: No Preferred Language: Portuguese Communication Ability: Effective Back End Developer Required: No Beliefs That Will Affect Care: None marital status: / Current Living Situation: Alone current occupational status: retired Feels Safe at Home: Yes Childhood Exposure to Second-Hand Smoke: No Assistive Devices: None Physical Exam Physical Exam: General: Patient in no acute distress. HEENT: Head is atraumatic, normocephalic. EOMs intact. Sclerae anicteric. Facies symmetric. No perioral cyanosis. Neck: No JVD. Carotid upstrokes +2 bilaterally without bruits. Chest and Lungs: Clear to auscultation throughout all lung ford, no wheezes, rales, or rhonchi. CVS: S1 and S2 are regular with a grade 1/6 apical holosystolic murmur. No obvious diastolic murmurs. No gallops or rubs. PMI is nondisplaced. No lifts, heaves, or thrills. No abdominal aortic or renal bruits. Abdominal Exam: Bowel sounds present. No masses, organomegaly, or tenderness. Extremities: No clubbing, cyanosis, or edema. Intact posterior tibial and radial pulses bilaterally. Neurologic Exam: Patient is awake, alert, and oriented. Pleasant and cooperative. Answers questions appropriately. Speech is clear. Normal movement in all 4 extremities. EKG on admission 07/29/2020 showed Atrial Fibrillation at 130 bpm with a LBBB pattern. TELEMETRY: -- Currently in a normal sinus rhythm at 68 bpm. -- At 05:04:46 this morning, she converted to a junctional rhythm x 4 beats, followed by normal sinus rhythm. Results & Data ([facility]) Vital Signs (Past 12 Hours) Vital Signs Temp Pulse Resp BP Pulse Ox 07/30/20 08:24 77 16 133/54 L 95 07/30/20 07:34 74 16 119/61 96 07/30/20 07:00 71 20 119/61 07/30/20 06:00 70 24 124/60 92 07/30/20 05:00 65 18 103/56 L 92 07/30/20 04:00 89 20 116/49 L 91 07/30/20 02:50 87 18 107/62 90 07/30/20 01:50 103 H 20 94/71 L 92 07/29/20 23:44 36.9 C 106 H 16 138/68 95 07/29/20 23:00 101 H 16 138/68 96 Laboratory Results Laboratory Results - last 24 hr 07/29/20 07/29/20 07/29/20 19:00 19:00 19:00 WBC 14.87 H RBC 4.60 Hgb 13.0 Hct 39.1 MCV 85.0 MCH 28.3 MCHC 33.2 RDW Std Deviation 47.4 H RDW Coeff of Ginny 15.2 H Plt Count 259 MPV 9.5 Immature Gran % (Auto) 0.7 Neut % (Auto) 80.6 Lymph % (Auto) 8.7 Ponce % (Auto) 8.9 Eos % (Auto) 0.9 Baso % (Auto) 0.2 Neut # (Auto) 11.98 H Lymph # (Auto) 1.30 Ponce # (Auto) 1.32 H Eos # (Auto) 0.14 Baso # (Auto) 0.03 Immature Gran # (Auto) 0.10 H PT 10.7 INR 1.0 APTT 31.1 H PTT Ratio 1.1 Sodium 137 Potassium 3.7 Chloride 104 Carbon Dioxide 26 Anion Gap 7.0 BUN 28 H Creatinine 1.18 Est Cr Clr Drug Dosing 32.5 Est GFR ( Amer) 47.7 Est GFR (Non-Af Amer) 41.1 BUN/Creatinine Ratio 23.6 H Glucose 121 H Calcium 9.5 Phosphorus Magnesium Total Bilirubin 0.5 AST 15 ALT 22 Alkaline Phosphatase 116 Troponin I 0.017 Total Protein 7.5 Albumin 3.2 L Globulin 4.3 H Albumin/Globulin Ratio 0.7 L Lipase 219 TSH 2.080 07/30/20 07/30/20 07/30/20 03:19 03:19 03:19 WBC 14.11 H RBC 4.35 Hgb 12.4 Hct 36.8 L MCV 84.6 MCH 28.5 MCHC 33.7 RDW Std Deviation 47.3 H RDW Coeff of Ginny 15.3 H Plt Count 246 MPV 9.1 Immature Gran % (Auto) 0.5 Neut % (Auto) 80.9 Lymph % (Auto) 10.8 Ponce % (Auto) 7.2 Eos % (Auto) 0.5 Baso % (Auto) 0.1 Neut # (Auto) 11.40 H Lymph # (Auto) 1.53 Ponce # (Auto) 1.02 H Eos # (Auto) 0.07 Baso # (Auto) 0.02 Immature Gran # (Auto) 0.07 H PT INR APTT 87.1 H* PTT Ratio 3.1 Sodium 139 Potassium 3.7 Chloride 104 Carbon Dioxide 28 Anion Gap 7.0 BUN 24 H Creatinine 1.13 Est Cr Clr Drug Dosing 34.0 Est GFR ( Amer) 50.3 Est GFR (Non-Af Amer) 43.4 BUN/Creatinine Ratio 21.2 H Glucose 140 H Calcium 8.9 Phosphorus 2.7 Magnesium 1.9 Total Bilirubin 0.5 AST 13 L ALT 20 Alkaline Phosphatase 106 Troponin I 0.088 H* Total Protein 6.7 Albumin 2.9 L Globulin 3.8 Albumin/Globulin Ratio 0.8 L Lipase TSH Medications Administered Active Medications Generic Name Dose Route Start Last Admin Trade Name Freq PRN Reason Stop Dose Admin Acetaminophen 1,000 mg 07/30/20 03:10 Acetaminophen 500 Mg Tab PO 08/29/20 03:09 Q8H PRN As Needed for Fever or Pain Al Hydrox/Mg Hydrox/Simethicone 15 ml 07/30/20 03:10 Aluminum/Magnesium/Simeth (Maalox Max) 30 Ml Udc PO 08/29/20 03:09 Q6H PRN Indigestion Cetirizine HCl 5 mg 07/30/20 21:00 Cetirizine Hcl 10 Mg Tablet PO 08/29/20 20:59 HS DEE DEE Ferrous Sulfate 325 mg 07/30/20 09:00 07/30/20 08:46 Ferrous Sulfate 325 Mg Tab PO 08/29/20 08:59 325 mg DAILY DEE DEE Administration Diltiazem HCl 125 mg/ Dextrose 125 mls @ 10 mls/hr 07/29/20 19:30 07/30/20 07:37 IV 08/28/20 19:29 10 mg/hr .[id number] DEE DEE 10 mls/hr Administration Protocol 10 MG/HR Heparin Sodium/Dextrose 25,000 units in 500 mls @ 20 mls/hr 07/29/20 20:15 07/30/20 04:43 Heparin Sodium/Dextrose IV 08/28/20 20:14 1,000 units/hr .Q24H DEE DEE 20 mls/hr Titration Protocol 1,000 UNITS/HR Levothyroxine Sodium 25 mcg 07/30/20 06:30 07/30/20 06:09 Levothyroxine Sodium 25 Mcg Tablet PO 08/29/20 06:29 25 mcg DAILYBB DEE DEE Administration Mirabegron 25 mg 07/30/20 09:00 07/30/20 08:46 Mirabegron Er 25 Mg Tab PO 08/29/20 08:59 25 mg DAILY DEE DEE Administration Ondansetron HCl 4 mg 07/30/20 03:10 07/30/20 08:43 Ondansetron Inj 2 Mg/Ml 2 Ml Vial IV 08/29/20 03:09 4 mg Q6H PRN Administration Nausea And Vomiting Pantoprazole Sodium 40 mg 07/30/20 09:00 07/30/20 08:46 Pantoprazole 40 Mg Tab PO 08/29/20 08:59 40 mg BID DEE DEE Administration Polyethylene Glycol 17 gm 07/30/20 03:10 Polyethylene (Miralax) 17 Gm Pack PO 08/29/20 03:09 DAILY PRN Constipation Simvastatin 80 mg 07/30/20 21:00 Simvastatin 80 Mg Tab PO 08/29/20 20:59 HS DEE DEE PG Care Time/CCT Total # of Minutes Spent Total Time Spent with Patient: Total time spent is greater than 50% in coordination of care (as documented) at patient's floor/unit and/or counseling patient: 35 Coding Level of Care Code 52586 OBS Care - Level 3 Diagnoses Atrial fibrillation with RVR I48.91 Elevated troponin I level R77.8 SOB (shortness of breath) on exertion R06.02 Left bundle-branch block I44.7 Hypertension I10
--- NOTE | 2020-07-30 11:10 | XCELERA ---
[id number] [id number]
[2020-07-30 11:39] LABS: Partial Thromboplastin Ratio 2.3
[2020-07-30 11:49] LABS: Partial Thromboplastin Time 64.3 Seconds (21.0-31.0)
--- NOTE | 2020-07-30 12:57 | Electrocardiogram Report ---
Test Reason : Blood Pressure : / mmHG Vent. Rate : 130 BPM Atrial Rate : 187 BPM P-R Int : 000 ms QRS Dur : 124 ms QT Int : 346 ms P-R-T Axes : 000 -54 118 degrees QTc Int : 509 ms Poor data quality, interpretation may be adversely affected Atrial fibrillation with rapid ventricular response Left axis deviation Left bundle branch block Abnormal ECG When compared with ECG of 18-JAN-2016 00:30, Atrial fibrillation has replaced Sinus rhythm HR has increased by 38 bpm Confirmed by Enmanuel Schwab ([id number]) on 07/30/2020 12:57:37 PM Referred By: REFERRED SELF Confirmed By:Enmanuel Schwab
--- NOTE | 2020-07-30 13:37 | XRay Report ---
XR chest 2V PA/lateral HISTORY: 89 years-old Female abnormality left side chest follow-up study in a patient with questione d midlung opacity COMPARISON: Chest radiograph 07/29/2020 TECHNIQUE: PA and lateral views of the chest FINDINGS: Cardiac mediastinal and hilar silhouettes are within normal limits. No pneumothorax, pleural effusion or overt pulmonary edema. The previously questioned ill-defined left midlung opacity is not apprecia juan f on today's study. Degenerative changes of the left shoulder are unchanged. IMPRESSION: 1. No acute process. 2. The previously questioned ill-defined left midlung opacity is not identified on today's study and was likely secondary to summation density. ACT 112: Negative or not required by law. The above report was generated using voice recognition software. It may contain grammatical, syntax o r spelling errors. Electronically signed by: Frantz Pereyra M.D. 07/30/2020 1:35 PM
[2020-07-30] MEDS ORDERED: PHARMACY CONSULT IN PROGRESS PRN (14:14)
[2020-07-30] MEDS: APIXABAN 5 MG TABLET PO SCH ×2 (14:50→21:15)
[2020-07-30] MEDS: dilTIAZem HCL 180 MG CAPCR PO SCH (15:21)
--- NOTE | 2020-07-30 15:52 | Hospitalist Progress Note ---
Date of Service July 30, 2020 Assessment & Plan (1) Atrial fibrillation with RVR: Ms. Odell is a pleasant 89yofemale with a PMHx significant for HTN, HLD, Hypothryoidism, GERD, chronic sinusitis, iron deficiency anemia, osteoarthritis, osteoporosis, allergic rhinitis and overactive bladder who presents with atrial fibrillation with rvr, possibly new onset. Atrial Fibrillation with RVR has now converted to sinus rhythm since admission -Pt states she has been having dyspnea with exertion for the last for 5 months which may or may not be related to other episodes of atrial fibrillation -EKG on admission showed atrial fibrillation with RVR, HR 130, qtc 509. Known LBBB. -Troponin with very minimal elevation in back down again -Echo with preserved EF and moderate LVH -Follow electrolytes and replace as needed Appreciate cardiology consultation Weaned off Cardizem drip and will start on p.o. diltiazem 180 mg once daily [id number] score is elevated at 4-we will start anticoagulation-this was discussed with her by cardiology -TSH within normal limits at 2.080 -Discontinue heparin drip Monitor on telemetry overnight after starting new medication (2) Elevated troponin I level: As above, secondary to myocardial demand ischemia from rapid atrial fibrillation Trended back downward (3) Leukocytosis: WBC count 14 on admission and again 14 today She has persistent nausea/dyspepsia and one episode of vomiting this morning. Has been afebrile. No abdominal pain, no urinary symptoms, no cough or evidence of pneumonia on chest x-ray. No cellulitis or joint swelling Given dyspepsia, will check right upper quadrant ultrasound for acute cholecystitis Again, leukocytosis could be stress related from rapid atrial fibrillation and vomiting Follow CBC in the morning Monitor for fevers or development of other symptoms Check urinalysis with urine culture as indicated (4) SOB (shortness of breath) on exertion: More chronic over the last 5 months Chest x-ray initially showed a possible density in the left lung which was resolved and was a summation artifact on PA and lateral chest x-ray Echocardiogram with preserved EF, no pulmonary edema Possibly could be from previous episodes of A. fib? We will follow and possibly need PFTs as an outpatient (5) Hypercholesterolemia: Need to reduce home simvastatin dose to 40 mg with starting diltiazem Alternative would be to start atorvastatin instead (6) Left bundle-branch block: Chronic, echocardiogram with preserved EF (7) Hypertension: Was hypotensive initially on Cardizem drip which is now improved -Continue to hold home HCTZ 12.5mg and lisinopril 40mg daily Can restart home meds if BPs tolerating diltiazem tomorrow (8) Osteoarthritis: Discontinue home NSAIDs (9) Iron deficiency anemia: -continue home ferrous sulfate 325mg po Follow CBC while on Eliquis (10) Hypothyroidism: -TSH 2.080 as above -continue home levothyroxine 25mcg daily (11) Frequent urinary incontinence: Overactive bladder -continue home mirabegron 25mg (12) Gastroesophageal reflux disease: GERD -continue home pantoprazole 40mg BID May need to add on Pepcid given that she is having breakthrough symptoms May need referral to GI Recommended discontinuing NSAID (13) Chronic sinusitis: Continue home cetirizine (14) Allergy to NSAIDs: Hx of NSAID Allergy -per pt she underwent a desensitization process and was prescribed ibuprofen above -no longer allergic (15) Allergic rhinitis: Allergic rhinitis -continue home cetirizine (16) DVT prophylaxis: FEN/GI: Heart healthy diet CODE STATUS: Full code DVT prophylaxis: On a heparin drip transitioning Eliquis Dispo: PCU/tele-continued stay Discussed her care with her son, Daniel Odell who is a general surgeon in [facility] Admission and Anticipated Discharge Date Admission Date: July 29, 2020 Subjective Patient reports feeling better than when she came in. She only had a feeling of something being not right and fatigue when she had the A. fib. She is spontaneously converted to sinus rhythm since admission. She denies any abdominal pains but does have intermittent nausea for the last 2 weeks despite taking Protonix twice daily. She also vomited once this morning after eating a banana. She denies any lower abdominal pain or lower back pain, no urinary symptoms. No fevers or chills. No cough or sputum production, no chest pains. She has been feeling short of breath with exertion especially up hills but this has been ongoing for 5 or 6 months and is not new. She otherwise was inquiring if she was going home or not this evening. She has had no Covid exposures and has been staying very isolated. I discussed her care with the stove fitter as well as nursing staff. Review of Systems Review of Systems: All systems reviewed & are unremarkable except as noted in HPI & below Physical Exam Constitutional: WD/WN, vitals as above Eyes: PERRL, conjunctivae normal, anicteric sclerae ENMT: external ear and nose normal, oropharynx normal Neck: trachea midline, no thyromegaly Respiratory: normal respiratory effort, lungs clear to auscultation Cardiovascular: RRR, no murmur, no edema Chest (Breasts): Chest: normal inspection of chest Gastrointestinal (Abdomen): normal bowel sounds, soft, nontender, no hepatosplenomegaly Musculoskeletal: Extremities: extremities normal to inspection; no cyanosis and no clubbing Skin: no rashes, warm and dry Neurologic: moves all extremities and awake; no focal motor deficits Psychiatric: A+Ox3, euthymic affect Lymphatic: no lymphedema Results & Data Results & Data ([facility]) Vital Signs (Past 12 Hours) Vital Signs Temp Pulse Pulse Resp BP BP Pulse Ox 07/30/20 15:22 36.8 C 65 20 132/72 94 07/30/20 15:01 66 20 121/58 L 92 07/30/20 14:00 36.7 C 65 20 121/58 L 94 07/30/20 12:40 68 24 07/30/20 12:30 70 24 07/30/20 12:20 68 28 H 07/30/20 12:10 69 22 07/30/20 12:00 68 28 H 126/59 L 07/30/20 11:50 69 30 H 07/30/20 11:40 69 22 07/30/20 11:30 73 24 07/30/20 11:20 63 23 07/30/20 11:10 65 20 07/30/20 11:00 68 18 125/62 07/30/20 10:50 65 17 07/30/20 10:40 65 24 07/30/20 10:30 65 22 07/30/20 10:20 68 29 H 07/30/20 10:10 67 24 07/30/20 10:00 67 19 133/54 L 07/30/20 09:50 67 24 07/30/20 09:40 66 25 H 07/30/20 09:30 67 24 07/30/20 09:20 69 32 H 07/30/20 09:10 69 17 07/30/20 09:00 69 24 128/57 L 07/30/20 08:50 71 23 07/30/20 08:40 73 24 07/30/20 08:30 72 26 H 07/30/20 08:24 77 16 133/54 L 95 07/30/20 08:21 75 30 H 07/30/20 08:20 75 37 H 133/54 L 07/30/20 08:19 79 22 07/30/20 08:00 72 23 129/56 L 07/30/20 07:50 71 25 H 07/30/20 07:40 73 24 07/30/20 07:34 74 16 119/61 96 07/30/20 07:30 70 21 07/30/20 07:20 69 23 07/30/20 07:10 72 28 H 07/30/20 07:00 70 71 27 H 119/61 119/61 07/30/20 06:50 75 21 07/30/20 06:40 71 24 07/30/20 06:30 78 33 H 07/30/20 06:20 71 21 07/30/20 06:10 75 22 07/30/20 06:00 69 70 22 124/60 124/60 94 07/30/20 05:50 67 24 90 07/30/20 05:40 68 25 H 90 07/30/20 05:30 67 20 95 07/30/20 05:20 65 22 91 07/30/20 05:10 66 24 91 07/30/20 05:00 72 65 23 103/56 L 103/56 L 93 07/30/20 04:50 87 24 89 L 07/30/20 04:40 84 22 89 L 07/30/20 04:30 88 26 H 91 07/30/20 04:20 92 H 20 90 07/30/20 04:10 84 21 89 L 07/30/20 04:01 95 H 16 116/49 L 92 07/30/20 04:00 83 89 24 116/49 L 91 Laboratory Results CBC notable for leukocytosis with WBC count 14, potassium 3.7 was replaced this morning, creatinine 1.13, glucose 140 TSH normal at 2.08 Troponin 0 0.017/0.088/0.07 Diagnostic Findings Echocardiogram with LVEF 60-65%, moderate LVH, mild MR, mild TR, RVSP mildly elevated at 30-40 mmHg PG Care Time/CCT Total # of Minutes Spent Total Time Spent with Patient: Total time spent is greater than 50% in coordination of care (as documented) at patient's floor/unit and/or counseling patient: Coding Level of Care Code 69764 Subseq Hosp Care Lvl 3 Diagnoses Atrial fibrillation with RVR I48.91 Elevated troponin I level R77.8 Leukocytosis D72.829 SOB (shortness of breath) on exertion R06.02 Hypercholesterolemia E78.00 Left bundle-branch block I44.7 Hypertension I10 Osteoarthritis M19.90 Iron deficiency anemia D50.9 Hypothyroidism E03.9 Frequent urinary incontinence N39.498 Gastroesophageal reflux disease K21.9 Chronic sinusitis J32.9 Allergy to NSAIDs Z88.6 Allergic rhinitis J30.9 Allergic rhinitis seasonality: unspecified Allergic rhinitis trigger: unspecified DVT prophylaxis Z29.9 (1) Allergic rhinitis Allergic rhinitis seasonality: unspecified Allergic rhinitis trigger: unspecified Qualified Code(s): J30.9 - Allergic rhinitis, unspecified
[2020-07-30] MEDS ORDERED: SIMVASTATIN 40 MG TAB PO SCH (21:00)
[2020-07-30 21:09] LABS: Appearance Urine Clear (Clear); Bacteria Urine Automated Negative (Negative); Bilirubin Urine Negative (Negative); Blood Urine Trace (Negative); Color Urine Yellow; Epithelial Cell Urine Auto >30 /lpf (0-5); Glucose Urine UA Negative (Negative); Ketones Urine Negative (Negative); Leukocyte Esterase Urine 2+ (Negative); Nitrite Urine Negative (Negative); Protein Urine Negative (Negative); RBC Urine Automated 0-4 /hpf (0-4); Specific Gravity Urine 1.019 (1.000-1.030); Urobilinogen Urine Negative (Negative); pH Urine 5.5 (4.5-7.5)
[2020-07-31 04:58] LABS: Basophils # (auto) 0.03 K/uL (0-0.2); Basophils % (auto) 0.3 %; Eosinophils # (auto) 0.16 K/uL (0-0.5); Eosinophils % (auto) 1.4 %; Hematocrit (blood only) 33.7 % (37-47); Hemoglobin 10.9 g/dL (12.0-16.0); Immature Granulocytes # (auto) 0.07 K/uL (0.00-0.02); Immature Granulocytes % (auto) 0.6 %; Lymphocytes # (auto) 1.26 K/uL (1.2-3.4); Lymphocytes % (auto) 11.2 %; Mean Corpuscular Hemoglobin 28.2 pg (25-34); Mean Corpuscular Hgb Conc 32.3 g/dL (32-36); Mean Corpuscular Volume 87.1 fL (80-100); Mean Platelet Volume 9.4 fL (7.4-10.4); Monocytes # (auto) 1.09 K/uL (0.11-0.59); Monocytes % (auto) 9.7 %; Neutrophils # (auto) 8.68 K/uL (1.4-6.5); Neutrophils % (auto) 76.8 %; Platelet Count 247 K/uL (130-400); RDW Coefficient of Variation 15.6 % (11.5-14.5); Red Blood Count 3.87 M/uL (4.2-5.4); White Blood Count 11.29 K/uL (4.8-10.8)
[2020-07-31 05:20] LABS: Partial Thromboplastin Ratio 1.2; Partial Thromboplastin Time 33.6 Seconds (21.0-31.0)
[2020-07-31] MEDS: LEVOTHYROXINE SODIUM 25 MCG TABLET PO SCH (05:33)
[2020-07-31 07:24] LABS: Albumin Level 2.7 gm/dl (3.4-5.0); BUN Creatinine Ratio 20.2 (10-20); Creatinine Clr Calc Pharmacy 31.4 ml/min; Est GFR (African American) 44.9; Est GFR (Non-African American) 38.8; Magnesium 1.8 mg/dl (1.8-2.4); Potassium 4.1 mmol/L (3.5-5.1)
[2020-07-31 07:27] LABS: Albumin Globulin Ratio 0.7 (0.9-2); Bilirubin,Total 0.4 mg/dl (0.2-1); Globulin 3.6 gm/dl (2.5-4.0); Total Protein 6.3 gm/dl (6.4-8.2)
--- NOTE | 2020-07-31 07:36 | Ultrasound Report ---
ABDOMINAL ULTRASOUND, RIGHT UPPER QUADRANT HISTORY: Right upper quadrant pain. assess for cholecystitis. COMPARISON: Abdominal ultrasound 11/03/2010. FINDINGS: Pancreas: The pancreas demonstrates a normal echotexture. Liver: The liver is echogenic consistent with fatty change. A 2 cm in length. Gallbladder: No gallbladder wall thickening. No gallstones. CBD: 5 mm. Right kidney: No hydronephrosis. IMPRESSION: 1. Hepatic steatosis. 2. Normal gallbladder. No gallstones. ACT 112: Negative or not required by law. Electronically signed by: Jerrod Delgado M.D. 07/31/2020 7:35 AM
[2020-07-31] MEDS: APIXABAN 5 MG TABLET PO SCH (07:39)
[2020-07-31] MEDS: FERROUS SULFATE 325 MG TAB PO SCH (07:39)
[2020-07-31] MEDS: MIRABEGRON ER 25 MG TAB PO SCH (07:39)
[2020-07-31] MEDS: dilTIAZem HCL 180 MG CAPCR PO SCH (07:39)
[2020-07-31] MEDS: PANTOprazole 40 MG TAB PO SCH (07:41)
--- NOTE | 2020-07-31 12:52 | Discharge Summary ---
Date of Service July 31, 2020 Admission HPI Per Admitting Provider Ms. Odell is a pleasant 89yo female with a PMHx significant for HTN, HLD, Hypothyroidism, GERD, chronic sinusitis, iron deficiency anemia, osteoarthritis, osteoporosis, allergic rhinitis and overactive bladder who presents with atrial fibrillation with rvr, possibly new onset. She presents today from the [facility] and states that she started noticing some exertional dyspnea during her daily walks on Tuesday (4 days ago) and it was particularly worse the next day because she had to stop multiple times. She was also very tired, with anorexia and nausea. Today she says she was going to watch a movie at the [facility] and was walking down the lu and climbing steps when she noticed some chest tightness with weakness and dizziness, also some chills. She states she took off her bra which helped relive some of the chest tightness but after trying to lay down with persistent dizziness, she called the nurse at the [facility] who recommended she come to the ED where she was found to be in a fib with rvr. She states she thinks she might have had this before but each time she came to the ED, she "got fixed" and was discharged back home. PMHx: As above PSH: Hysterectomy, tonsillectomy, sinus surgeries NOT rhinoplasty (would like people to know she did NOT have a "nose job") Fam Hx: Mom had a Hx of rheumatic fever as a child with "valve problem". Dad from a cerebral hemorrhage SH: Used to smoke 2ppd from [id number]. She quit "cold turkey" and is a huge advocate that it can be done. She drinks "very little" alcohol and has had none recently. No recreational drug use. Lives at the [facility]. Principal Diagnosis Rapid atrial fibrillation Discharge Exam Constitutional WD/WN, vitals as above Eyes PERRL, conjunctivae normal, anicteric sclerae ENMT external ear and nose normal, oropharynx normal Neck trachea midline, no thyromegaly Respiratory normal respiratory effort, lungs clear to auscultation Cardiovascular RRR, no murmur, no edema Chest (Breasts) Chest: normal inspection of chest Gastrointestinal (Abdomen) normal bowel sounds, soft, nontender, no hepatosplenomegaly Musculoskeletal Extremities: extremities normal to inspection; no cyanosis and no clubbing Skin no rashes, warm and dry Neurologic moves all extremities and awake; no focal motor deficits Psychiatric A+Ox3, euthymic affect Lymphatic no lymphedema Discharge Data Allergies Allergy/AdvReac Type Severity Reaction Status Date / Time epinephrine Allergy Severe ARRHYTHMIA, Verified 07/29/20 20:36 IRRITABILITY, TACHYCARDIA Iodinated Contrast Media Allergy Severe Anaphylaxis Verified 07/29/20 20:36 iodine Allergy Severe TACHYCARDIA, Verified 07/29/20 20:36 ARRHYTHMIA caffeine Allergy Unknown TACHYCARDIA Verified 07/29/20 20:36 - BODY FELT OUT OF "WHACK" house dust Allergy Unknown Unknown Verified 07/29/20 20:36 mold Allergy Unknown Unknown Verified 07/29/20 20:36 nitrofurantoin Allergy Unknown Unknown Verified 07/29/20 20:36 [From Macrobid] Penicillins Allergy Unknown UNKNOWN Verified 07/29/20 20:36 sulfamethoxazole Allergy Unknown Unknown Verified 07/29/20 20:36 [From Bactrim] trimethoprim [From Bactrim] Allergy Unknown Unknown Verified 07/29/20 20:36 Consultations 07/29/20 20:17 ED Decision to Admit Stat 07/30/20 03:10 Consult Cardiology Stat Ordered Studies 07/30/20 15:50 US gallbladder Urgent Chest x-ray x2 Hospital Course (1) Atrial fibrillation with RVR: Ms. Odell is a pleasant 89yofemale with a PMHx significant for HTN, HLD, Hypothryoidism, GERD, chronic sinusitis, iron deficiency anemia, osteoarthritis, osteoporosis, allergic rhinitis and overactive bladder who presents with atrial fibrillation with rvr, possibly new onset. Atrial Fibrillation with RVR has now converted to sinus rhythm since admission -Pt states she has been having dyspnea with exertion for the last for 5 months which may or may not be related to other episodes of atrial fibrillation -EKG on admission showed atrial fibrillation with RVR, HR 130, qtc 509. Known LBBB. -Troponin with very minimal elevation in back down again -Echo with preserved EF and moderate LVH Potassium was replaced upon admission Appreciate cardiology consultation Weaned off Cardizem drip and Started on p.o. diltiazem 180 mg once daily [id number] score is elevated at 4-Started anticoagulation With apixaban 5 mg p.o. twice daily As per recommendation by cardiology -TSH within normal limits at 2.080 Follow-up with cardiology after discharge (2) Elevated troponin I level: As above, secondary to myocardial demand ischemia from rapid atrial fibrillation Trended back downward (3) Leukocytosis: WBC count 14 on admission and Was persistent by the next day. Down to 11 on the day of discharge. She has had persistent nausea/dyspepsia For the last several weeks and admits to taking NSAIDs frequently. She had one episode of vomiting In the hospital but it was in the setting of taking too large potassium chloride pills. Has been afebrile. No abdominal pain, no urinary symptoms, no cough or evidence of pneumonia on chest x-ray. No cellulitis or joint swelling Given dyspepsia, Checked right upper quadrant ultrasound for acute cholecystitis Which was negative Again, leukocytosis could be stress related from rapid atrial fibrillation and vomiting Urinalysis without infection No further work-up needed (4) SOB (shortness of breath) on exertion: More chronic over the last 5 months Chest x-ray initially showed a possible density in the left lung which was resolved and was a summation artifact on PA and lateral chest x-ray Echocardiogram with preserved EF, no pulmonary edema Possibly could be from previous episodes of A. fib? We will follow and possibly need PFTs as an outpatient (5) Hypercholesterolemia: Need to reduce home simvastatin dose to 40 mg with starting diltiazem (6) Left bundle-branch block: Chronic, echocardiogram with preserved EF (7) Hypertension: Was hypotensive initially on Cardizem drip which is now improved -Okay to restart HCTZ 12.5mg and lisinopril 40mg daily (8) Osteoarthritis: Discontinue home NSAIDs (9) Iron deficiency anemia: -continue home ferrous sulfate 325mg po Follow CBC while on Eliquis (10) Hypothyroidism: -TSH 2.080 as above -continue home levothyroxine 25mcg daily (11) Frequent urinary incontinence: Overactive bladder -continue home mirabegron 25mg (12) Gastroesophageal reflux disease: GERD-With exacerbation based on using NSAIDs -continue home pantoprazole 40mg BID add on Pepcid 20 mg p.o. twice daily x2 weeks given that she is having breakthrough symptoms May need referral to GI As an outpatient if not improving Recommended discontinuing NSAID (13) Chronic sinusitis: Continue home cetirizine (14) Allergy to NSAIDs: Hx of NSAID Allergy -per pt she underwent a desensitization process and was prescribed ibuprofen above -no longer allergic But should remain off of them now that she is on Eliquis and has dyspepsia (15) Allergic rhinitis: Allergic rhinitis -continue home cetirizine (16) DVT prophylaxis: FEN/GI: Heart healthy diet CODE STATUS: Full code DVT prophylaxis: Eliquis Dispo: Stable for discharge Discussed her care with her son, Dr. Daniel Odell who is a general surgeon in [facility] Total Time Total Time Spent Total Time Spent (In Minutes): 35 minutes Total Time Includes: Examination of the Patient, Discharge Planning, Medication Reconciliation and Communication With Other Providers Discharge Plan Discharge Items Patient Disposition: Home - Self-Care Reason For Visit: AFIB WITH RVR Discharge Diagnosis: Atrial fibrillation with rapid ventricular response Condition on Discharge: Good Activity: Resume your previous activity Non-emergency contact: Primary Care Provider and Production Graphic Designer Call non-emergency contact if: you have any medication questions and your symptoms worsen Follow-up/Referrals: Enmanuel Schwab MD [Physician] - (Please follow-up within 2 to 3 weeks) Pedro Luis Conner MD [Primary Care Provider] - (Please follow-up within 1 to 2 weeks) Diet: Heart Healthy Addtl Attending Provider Instructions: You were admitted for a rapid irregular heartbeat called atrial fibrillation. You were started on a blood thinner called apixaban (Eliquis) to reduce your risk of stroke associated with this arrhythmia of the heart. You were also started on a medication called diltiazem to help control your heart rate if you do go back into atrial fibrillation. Because of an interaction with simvastatin, your simvastatin dose was reduced to 40 mg once daily. Your work-up for infectious causes and this was all normal. Please follow-up with the hose wrapper within 2 to 3 weeks and your primary care physician within 1 to 2 weeks. Because of your increase in indigestion lately, your gallbladder was checked and this was normal. The indigestion could be from your use of ibuprofen. Please discontinue all use of ibuprofen and any other nonsteroidal anti-inflammatory drugs (NSAIDs). You should take Pepcid 20 mg twice daily for the next two weeks. Pending Studies at Discharge: No Stand-Alone Forms: [facility] Medications and DC Order Prescriptions: New diltiazem HCl 180 mg Capsule,Extended Release 24hr 180 mg PO QAM Qty: 30 RF: 0 acetaminophen 500 mg Tablet 1,000 mg PO Q8H PRN (Reason: pain) Qty: 30 RF: 0 Eliquis 5 mg Tablet 5 mg PO BID Qty: 60 RF: 0 famotidine [Pepcid] 20 mg tablet 20 mg PO BID 14 Days Qty: 28 RF: 0 Continued hydrochlorothiazide 12.5 mg capsule 12.5 mg PO DAILY Qty: 90 RF: 3 levothyroxine 25 mcg tablet 25 mcg PO DAILY Qty: 90 RF: 3 lisinopril 40 mg tablet 40 mg PO DAILY Qty: 90 RF: 3 mirabegron 25 mg tablet extended release 24 hr 25 mg PO DAILY Qty: 90 RF: 3 pantoprazole 40 mg tablet,delayed release (DR/EC) 40 mg PO BID Qty: 180 RF: 3 cetirizine 10 mg tablet 10 mg PO DAILY RF: 0 aspirin 81 mg Tablet,Delayed Release (Dr/Ec) 81 mg PO DAILY RF: 0 ferrous sulfate 325 mg (65 mg iron) Tablet 325 mg PO DAILY RF: 0 Changed simvastatin 80 mg tablet 40 mg PO DAILY Qty: 90 RF: 3 Discontinued ibuprofen 200 mg Tablet 200 mg PO BID RF: 0 Discharge Orders: Discharge Order (Routine); Ordered 07/31/20 Ordered By: Lyssa Maria Admission Data Admit Date/Time: 07/29/20 21:57 Attending Provider: Lyssa Maria Admit Provider: Nicole Lan Primary Care Provider: Pedro Luis Conner Other Providers: Yolande Mohamud Anthony F. Coding Level of Care Code D/C Day Management >30 mins Diagnoses Atrial fibrillation with RVR I48.91 Elevated troponin I level R77.8 Leukocytosis D72.829 SOB (shortness of breath) on exertion R06.02 Hypercholesterolemia E78.00 Left bundle-branch block I44.7 Hypertension I10 Osteoarthritis M19.90 Iron deficiency anemia D50.9 Hypothyroidism E03.9 Frequent urinary incontinence N39.498 Gastroesophageal reflux disease K21.9 Chronic sinusitis J32.9 Allergy to NSAIDs Z88.6 Allergic rhinitis J30.9 Allergic rhinitis trigger: unspecified Allergic rhinitis seasonality: unspecified DVT prophylaxis Z29.9
== END 2020-07-31 14:00 | disposition home or self-care (01) | DRG 309 ==
LOC: ED 19:11 → EDINP 21:57 → SUATTDRO 21:57 → 1E 07-30 14:35